=== PATIENT | female | born 1970 | race Caucasian/White ===

== ENCOUNTER 2016-08-09 09:45 | Emergency (ER) | payer SELFPAY ==
[~2016-08-09] VITALS: Ht 165.1 cm; Wt 70.0 kg
[~2016-08-09 09:45] MED LIST: LEVO50IN PO; SERT-132 PO; SERT50 PO
[2016-08-09 09:57] VITALS: BP 132/87; PULSE 68; RESP 16; TEMP 98.1; O2SAT 98
[2016-08-09] MEDS ORDERED: LEVO200T4 PO (10:06)
[2016-08-09] MEDS ORDERED: IBUPROFEN 600 MG TAB PO ONE (10:15)
[2016-08-09 10:48] LABS: BASOPHIL # 0.1 TH/MM3 (0-0.2); BASOPHIL % 2.1 % (0.0-2.0); EOSINOPHIL # 0.1 TH/MM3 (0-0.4); EOSINOPHIL % 1.3 % (0.0-4.0); HEMATOCRIT 29.5 % (35.0-46.0); LYMPH % 25.5 % (9.0-44.0); LYMPHOCYTE # 1.6 TH/MM3 (1.0-4.8); MEAN CELL VOLUME 70.1 FL (80.0-100.0); MEAN CORPUSCULAR HEMOGLOBIN 22.6 PG (27.0-34.0); MEAN CORPUSCULAR HGB CONC 32.3 % (32.0-36.0); NEUT % 65.1 % (16.0-70.0); PLATELET COUNT 244 TH/MM3 (150-450); RED BLOOD COUNT 4.22 MIL/MM3 (4.00-5.30); RED CELL DISTRIBUTION WIDTH 34.1 % (11.6-17.2); WHITE BLOOD COUNT 6.2 TH/MM3 (4.0-11.0)
[2016-08-09 10:52] LABS: HEMO FLAGS AUTO DIFF
[2016-08-09 10:55] LABS: BACTERIA, URINE RARE /hpf; BLOOD, URINE TRACE (NEG); GLUCOSE,URINE NEG (NEG); KETONE, URINE NEG (NEG); MUCUS URINE FEW /lpf (OCC); NITRITE,URINE NEG (NEG); PH, URINE 6.5 (5.0-8.5); SQUAMOUS EPITHELIAL CELL URINE 5 /hpf (0-5); URINE COLOR YELLOW (YELLW/STRAW)
[2016-08-09 10:56] LABS: COMMENT (UR) CULTURE INDICATED; CULTURE IF INDICATED CULTURE INDICATED
[2016-08-09 10:57] LABS: ANION GAP 6 MEQ/L (5-15); BLOOD UREA NITROGEN 12 MG/DL (7-18); CHLORIDE 105 MEQ/L (98-107); GLOMERULAR FILTRATION RATE 56 ML/MIN (>89); POTASSIUM 3.6 MEQ/L (3.5-5.1); SODIUM (NA) 139 MEQ/L (136-145)
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
[2016-08-09 11:44] LABS: OVALOCYTES 1+ (NORMAL); SCAN/DIFF AUTO DIFF CONFIRMED
[2016-08-09 11:45] LABS: AMPHETAMINE, URINE POS (NEG); BARBITURATES, URINE NEG (NEG); COCAINE, URINE NEG (NEG)
[2016-08-09 12:08] VITALS: BP 117/81; PULSE 61; RESP 17; O2SAT 99
--- NOTE | 2016-08-09 15:52 | EKG ---
Date Performed: 08/09/2016 Time Performed: 10:35:57 PTAGE: 46 years EKG: Sinus rhythm NONSPECIFIC T-WAVE ABNORMALITY BORDERLINE ECG NO PREVIOUS TRACING DOCTOR: Dustin Carrasco Interpretating Date/Time 08/09/2016 15:48:07
== END 2016-08-09 13:24 | disposition home or self-care (01) ==
LOC: NEPA 09:45
DX: R51 Headache (principal); R53.83 Other fatigue; R94.31 Abnormal electrocardiogram [ECG] [EKG]; E07.9 Disorder of thyroid, unspecified; Z72.0 Tobacco use; Y04.2XXA Assault by strike against or bumped into by another person, initial encounter; Y92.003 Bedroom of unspecified non-institutional (private) residence as the place of occurrence of the external cause; Y93.89 Activity, other specified; Y99.8 Other external cause status; Y07.03 Male partner, perpetrator of maltreatment and neglect
CPT/HCPCS: 70450; 72125; 80048; 80307; 81001; 84484; 84703; 85025; 87086; 93005